=== PATIENT | female | born 1955 | race Caucasian/White ===

== ENCOUNTER → 2016-09-20 | Outpatient (CLI) | payer BC | LOC: MW.CHFP 09:20 | PROVIDERS: ATTEND Physician Assistant | DX: E03.9 Hypothyroidism, unspecified (principal); E78.5 Hyperlipidemia, unspecified | CPT/HCPCS: 36415; 80061; 84443 ==

== ENCOUNTER 2017-08-14 07:26 | Day surgery (SDC) | payer BC ==
[~2017-08-14 07:26] MED LIST: Lactated Ringers 1,000 ML IV SCH; Lidocaine 2% 5 ML SDV ONE; Propofol 200 MG/20 ML SDV ONE
--- NOTE | 2017-08-14 07:58 | PCM.PREANE ---
Preanesthetic Assessment - Anesthesia/Transfusion/Family Hx Anesthesia History: Prior Anesthesia Without Reaction Family History of Anesthesia Reaction: No Transfusion History: No Prior Transfusion(s) Intubation History: Unknown - Review of Systems General: No Symptoms Pulmonary: No Symptoms Cardiovascular: No Symptoms Gastrointestinal: Constipation, Hematochezia Neurological: No Symptoms Other: Reports: None - Physical Assessment O2 Sat by Pulse Oximetry: 97 Respiratory Rate: 16 Vital Signs: Last Vital Signs Temp 35.7 C 08/14/17 07:35 Pulse 70 08/14/17 07:35 Resp 16 08/14/17 07:35 BP 124/73 08/14/17 07:35 Pulse Ox 97 08/14/17 07:35 Height: 1.68 m Weight: 85.729 kg ASA Class: 2 Mental Status: Alert & Oriented x3 Airway Class: Mallampati = 2 Dentition: Reports: Dentures (upper), Partial (lower) Thyro-Mental Finger Breadths: 3 Mouth Opening Finger Breadths: 3 ROM/Head Extension: Limited/Partial Lungs: Clear to Auscultation, Normal Respiratory Effort Cardiovascular: Regular Rate, Regular Rhythm - Allergies Allergies/Adverse Reactions: Allergies Allergy/AdvReac Type Severity Reaction Status Date / Time levothyroxine sodium Allergy Numbness Verified 08/09/17 10:19 - Blood Blood Available: No - Anesthesia Plan Pre-Op Medication Ordered: None - Acknowledgements Anesthesia Type Planned: MAC Pt an Appropriate Candidate for the Planned Anesthesia: Yes Alternatives and Risks of Anesthesia Discussed w Pt/Guardian: Yes Pt/Guardian Understands and Agrees with Anesthesia Plan: Yes PreAnesthesia Questionnaire HEENT History: Reports: Sinusitis, Other (See Below) Other HEENT History: wears glasses, has top denture and bottom partial Cardiovascular History: Reports: High Cholesterol Gastrointestinal History: Reports: Colon Polyp, Other (See Below) Other Gastrointestinal History: occasional heartburn Genitourinary History: Reports: None Musculoskeletal History: Reports: Osteoarthritis Neurological History: Reports: None Endocrine/Metabolic History: Reports: Hypothyroidism, Obesity/BMI 30+ - Past Surgical History Head Surgeries/Procedures: Reports: None GI Surgical History: Reports: Colonoscopy (x2 '06 and ') Female Surgical History: Reports: Hysterectomy, Salpingo-Oophorectomy Neurological Surgical History: Reports: C-Spine ([facility] 3 years ago) Other Neurological Surgeries/Procedures: cervical fusion - SUBSTANCE USE Smoking Status *Q: Light Tobacco Smoker Tobacco Use Within Last Twelve Months: Cigarettes Recreational Drug Use History: No - HOME MEDS Home Medications: Home Meds Aspirin 325 mg PO DAILY 08/09/17 [History] Glycerin/Phenyleph/Pramox/Pet [Preparation H Crm] 1 applic RECTAL ASDIRECTED PRN 08/09/17 [History] Levothyroxine Sodium [Synthroid] 100 mcg PO DAILY 08/09/17 [History] Multivitamin [Multivitamins] 1 tab PO DAILY 08/09/17 [History] Red Yeast Rice 1 tab PO DAILY 08/09/17 [History] Sennosides [Laxative] 1 tab PO ASDIRECTED 08/09/17 [History] - CURRENT (IN HOUSE) MEDS Current Meds: Current Medications Lactated Ringer's (Ringers, Lactated) 1,000 mls @ 125 mls/hr IV ASDIRECTED [facility] Last Admin: 08/14/17 07:47 Dose: 125 mls/hr Discontinued Medications Lidocaine (Xylocaine-Mpf 2%) Confirm Administered Dose 5 ml .ROUTE .STK-MED ONE Stop: 08/14/17 07:22 Propofol (Diprivan 20 Ml) Confirm Administered Dose 400 mg .ROUTE .STK-MED ONE Stop: 08/14/17 07:23
--- NOTE | 2017-08-14 09:36 | PCM.OPNOTE ---
- General Post-Op/Procedure Note Date of Surgery/Procedure: 08/14/17 Operative Procedure(s): Colonoscopy Pre Op Diagnosis: Rectal bleeding. Change in bowel habits. Personal history of colon polyps. Post-Op Diagnosis: Sigmoid diverticulosis. Anesthesia Technique: MAC (ASA II) Primary Surgeon: Patrick Hadley Condition: Good Free Text/Narrative:: Dictation [id number] CPT CODE [id number]
[2017-08-14] MEDS ORDERED: Lactated Ringers 1,000 ML IV SCH (09:45)
--- NOTE | 2017-08-14 12:13 | OR ---
SURGEON: Patrick Hadley M.D. DATE OF PROCEDURE: 08/14/2017 OPERATION PERFORMED: Colonoscopy. ANESTHESIA: MAC. ASA CLASSIFICATION: Two. PREOPERATIVE DIAGNOSES: 1. Intermittent rectal bleeding. 2. Change in bowel habits. 3. Personal history of colon polyps. POSTOPERATIVE DIAGNOSIS: Sigmoid diverticulosis. DESCRIPTION OF PROCEDURE: The patient was taken to the endoscopy room, positioned on the endoscopy table in the left lateral decubitus position. Time-out was called for appropriate identification of patient and procedure. Monitored anesthesia care was provided. The colonoscope was inserted into the rectum and advanced with minimal difficulty to the cecum where the colonoscope was retroflexed to visualize the ascending colon from below. The colonoscope was then straightened and slowly withdrawn. The cecum, ascending colon, hepatic flexure, transverse colon, splenic flexure, and descending colon showed no tumors, polyps, diverticula, or angiodysplasia. Small diverticula were noted scattered throughout the sigmoid colon. No stricture, spasm, or bleeding was noted. No sigmoid polyps were encountered. The colonoscope was then withdrawn to the rectum and retroflexed to visualize the anal orifice from above. Again no tumors or polyps were seen and there were no acute hemorrhoidal changes. The colonoscope was then straightened, the rectum aspirated, and the colonoscope removed. The patient tolerated the procedure well and was taken to recovery room in stable condition. CESAR REEES /[id number]
== END 2017-08-14 10:15 | disposition home or self-care (01) ==
LOC: MW.SDS 07:26
PROVIDERS: ATTEND Surgery
DX: K57.30 Diverticulosis of large intestine without perforation or abscess without bleeding (principal); K62.5 Hemorrhage of anus and rectum; F17.210 Nicotine dependence, cigarettes, uncomplicated; E66.9 Obesity, unspecified; Z68.30 Body mass index [BMI] 30.0-30.9, adult; E78.00 Pure hypercholesterolemia, unspecified; Z86.010 Personal history of colon polyps; Z87.19 Personal history of other diseases of the digestive system; Z79.82 Long term (current) use of aspirin; Z80.0 Family history of malignant neoplasm of digestive organs
CPT/HCPCS: 45378; J7120; J2704

== ENCOUNTER 2020-03-27 09:29 | Day surgery (SDC) | payer BC ==
--- NOTE | 2020-03-27 10:20 | PCM.PREANE ---
Preanesthetic Assessment - Anesthesia/Transfusion/Family Hx Anesthesia History: Prior Anesthesia Without Reaction Family History of Anesthesia Reaction: No Transfusion History: No Prior Transfusion(s) Intubation History: Unknown - Review of Systems General: No Symptoms Pulmonary: No Symptoms Cardiovascular: No Symptoms Gastrointestinal: Constipation, Hematochezia, Other (diverticulosis , h/o colon polyps '06) Neurological: No Symptoms Other: Reports: None - Physical Assessment Height: 5 ft 6 in Weight: 87.09 kg ASA Class: 2 Mental Status: Alert & Oriented x3 Airway Class: Mallampati = 2 Dentition: Reports: Dentures (upper and lower - glued tight) Thyro-Mental Finger Breadths: 3 Mouth Opening Finger Breadths: 3 ROM/Head Extension: Limited/Partial Lungs: Clear to Auscultation, Normal Respiratory Effort Cardiovascular: Regular Rate, Regular Rhythm - Allergies Allergies/Adverse Reactions: Allergies Allergy/AdvReac Type Severity Reaction Status Date / Time levothyroxine sodium Allergy Numbness Verified 03/23/20 15:30 - Blood Blood Available: No - Anesthesia Plan Pre-Op Medication Ordered: None - Acknowledgements Anesthesia Type Planned: MAC Pt an Appropriate Candidate for the Planned Anesthesia: Yes Alternatives and Risks of Anesthesia Discussed w Pt/Guardian: Yes Pt/Guardian Understands and Agrees with Anesthesia Plan: Yes PreAnesthesia Questionnaire HEENT History: Reports: Other (See Below) Other HEENT History: wears glasses, has upper full denture and lower partial removable denture Cardiovascular History: Reports: High Cholesterol Gastrointestinal History: Reports: Colon Polyp, Diverticulosis, Hemorrhoids Other Gastrointestinal History: occasional heartburn Genitourinary History: Reports: None Musculoskeletal History: Reports: Back Pain, Chronic Neurological History: Reports: None Endocrine/Metabolic History: Reports: Hypothyroidism, Obesity/BMI 30+ (BMI 31.0) - Past Surgical History Head Surgeries/Procedures: Reports: None GI Surgical History: Reports: Colonoscopy (x3, last time '18 - normal) Female Surgical History: Reports: Breast Biopsy, Hysterectomy, Salpingo- Oophorectomy Neurological Surgical History: Reports: C-Spine, Spinal Fusion - SUBSTANCE USE Smoking Status *Q: Current Every Day Smoker (1 ppd) Tobacco Use Within Last Twelve Months: Cigarettes Recreational Drug Use History: No - HOME MEDS Home Medications: Home Meds Multivitamin [Multivitamins] 1 tab PO DAILY 08/09/17 [History] Levothyroxine Sodium [Synthroid] 100 mcg PO QAM 03/23/20 [History] - CURRENT (IN HOUSE) MEDS Current Meds: Current Medications Lactated Ringer's (Ringers, Lactated) 1,000 mls @ 125 mls/hr IV ASDIRECTED [facility]
[2020-03-27] MEDS ORDERED: fentaNYL 100 MCG/2 ML SDV ONE (11:00)
[2020-03-27] MEDS ORDERED: Midazolam 1 MG/ML 2 ML SDV ONE (11:00)
[2020-03-27] MEDS ORDERED: Propofol 200 MG/20 ML SDV ONE (11:00)
[2020-03-27] MEDS ORDERED: Lidocaine 2% 5 ML SDV ONE (11:02)
[2020-03-27] MEDS ORDERED: Lactated Ringers 1,000 ML IV SCH ×2 (11:30→12:15)
--- NOTE | 2020-03-27 12:10 | PCM.OPNOTE ---
- General Post-Op/Procedure Note Date of Surgery/Procedure: 03/27/20 Operative Procedure(s): Colonoscopy Pre Op Diagnosis: Rectal bleeding. Hx of colon polyps. Family history of colon cancer. Post-Op Diagnosis: Mild sigmoid diverticulosis. Internal hemorrhoids. Anesthesia Technique: MAC (ASA II) Primary Surgeon: Patrick Hadley Condition: Good Free Text/Narrative:: DICTATION [id number] CPT CODE [id number]
--- NOTE | 2020-03-27 12:21 | PCM.POSTAN ---
POST ANESTHESIA ASSESSMENT - MENTAL STATUS Mental Status: Alert, Oriented - VITAL SIGNS Vital Signs: Last Vital Signs Temp 36.3 C 03/27/20 10:00 Pulse 59 L 03/27/20 12:12 Resp 13 03/27/20 12:12 BP 101/64 03/27/20 12:12 Pulse Ox 97 03/27/20 12:12 - RESPIRATORY Respiratory Status: Respiratory Rate WNL, Airway Patent, O2 Saturation Stable - CARDIOVASCULAR CV Status: Pulse Rate WNL, Blood Pressure Stable - GASTROINTESTINAL GI Status: No Symptoms - PAIN Pain Score: 0 - POST OP HYDRATION Hydration Status: Adequate & Stable - OBSERVATIONS Free Text/Narrative:: No anesthesia problems
--- NOTE | 2020-03-27 12:34 | PCM48HPAN ---
Post Anesthesia Note - EVALUATION WITHIN 48HRS OF ANESTHETIC Vital Signs in Normal Range: Yes Patient Participated in Evaluation: Yes Respiratory Function Stable: Yes Airway Patent: Yes Cardiovascular Function Stable: Yes Hydration Status Stable: Yes Pain Control Satisfactory: Yes Nausea and Vomiting Control Satisfactory: Yes Mental Status Recovered: Yes Vital Signs: Last Vital Signs Temp 36.3 C 03/27/20 10:00 Pulse 59 L 03/27/20 12:12 Resp 13 03/27/20 12:12 BP 101/64 03/27/20 12:12 Pulse Ox 97 03/27/20 12:12 - COMMENTS/OBSERVATIONS Free Text/Narrative:: No anesthesia problems
--- NOTE | 2020-03-27 14:06 | OR ---
SURGEON: Patrick Hadley M.D. DATE OF PROCEDURE: 03/27/2020 OPERATION PERFORMED: Colonoscopy. PRIMARY SURGEON: Patrick Hadley MD ANESTHESIA: MAC. ASA CLASSIFICATION: II. PREOPERATIVE DIAGNOSES: 1. Rectal bleeding. 2. History of colon polyps. 3. Family history of colon cancer. POSTOPERATIVE DIAGNOSES: 1. Internal hemorrhoids. 2. Mild sigmoid diverticulosis. DESCRIPTION OF PROCEDURE: The patient was taken to the endoscopy room and positioned on the endoscopy table in the left lateral decubitus position. Time-out was called for appropriate identification of the patient and procedure. Monitored anesthesia care was provided. The colonoscope was inserted into the rectum and advanced with minimal difficulty to the cecum. The cecum was identified by internal landmarks and external pressure. The colonoscope was retroflexed to visualize the ascending colon from below, then straightened and slowly withdrawn. The cecum, ascending colon, hepatic flexure, transverse colon, splenic flexure, and descending colon showed no tumors, polyps, diverticula, or angiodysplastic changes anywhere. Sigmoid colon demonstrated a few small scattered diverticula. No stricture, spasm, or bleeding was noted. No polyps were encountered in the sigmoid colon. The colonoscope was then withdrawn to the rectum and retroflexed to visualize the anal orifice from above. Again, no tumors or polyps were seen and there were no acute hemorrhoidal changes. She does have some chronic hemorrhoids that are not actively bleeding. The colonoscope was then straightened, the rectum aspirated, and the colonoscope removed. The patient tolerated the procedure well and was taken to recovery room in stable condition. CESAR / HUGH /[id number]
[2020-03-28] MEDS ORDERED: Lactated Ringers 1,000 ML IV SCH (06:00)
== END 2020-03-27 13:32 | disposition home or self-care (01) ==
LOC: MW.SDS 09:29
PROVIDERS: ATTEND Surgery
DX: K57.30 Diverticulosis of large intestine without perforation or abscess without bleeding (principal); K64.8 Other hemorrhoids; F17.210 Nicotine dependence, cigarettes, uncomplicated; K62.5 Hemorrhage of anus and rectum; E78.00 Pure hypercholesterolemia, unspecified; E78.5 Hyperlipidemia, unspecified; E03.9 Hypothyroidism, unspecified; E66.9 Obesity, unspecified; Z68.31 Body mass index [BMI] 31.0-31.9, adult; Z88.1 Allergy status to other antibiotic agents; Z79.890 Hormone replacement therapy; Z79.899 Other long term (current) drug therapy; Z86.010 Personal history of colon polyps; Z80.0 Family history of malignant neoplasm of digestive organs; Z98.890 Other specified postprocedural states
CPT/HCPCS: 45378; J2001; J2704; J3010; J7120; 00811; J2250

== ENCOUNTER 2022-07-06 10:45 | Emergency (ER) | payer MEDICARE, BC ==
[2022-07-06] MEDS ORDERED: Sodium Chloride 0.9% 2.5 ML Syringe FLUSH PRN (10:49)
[2022-07-06] MEDS ORDERED: Sodium Chloride 0.9% 10 ML Syringe FLUSH PRN (10:49)
[2022-07-06 11:33] LABS: CARBON DIOXIDE,CO2 26.8 mmol/L (21.0-32.0); POTASSIUM,K 3.8 mmol/L (3.5-5.1)
[2022-07-06] MEDS ORDERED: Heparin Sodium/0.45% NaCl 500 ML IV SCH (12:00)
[2022-07-06] MEDS ORDERED: Heparin Sodium 5,000 Units/ML Vial IVPUSH ONE (12:16)
== END 2022-07-06 17:45 ==
LOC: MW.ED 10:45
DX: K57.92 Diverticulitis of intestine, part unspecified, without perforation or abscess without bleeding (principal); K55.069 Acute infarction of intestine, part and extent unspecified; E78.00 Pure hypercholesterolemia, unspecified; E66.9 Obesity, unspecified; Z79.899 Other long term (current) drug therapy; Z20.822 Contact with and (suspected) exposure to COVID-19; Z68.31 Body mass index [BMI] 31.0-31.9, adult
CPT/HCPCS: 36415; 80053; 83605; 85025; 85730; 93005; 96365; 96366; 99285; J1644; J3490; U0002

== ENCOUNTER 2023-11-12 15:11 | Emergency (ER) | payer MEDICARE, BC ==
[2023-11-12] MEDS: Lidocaine 1% 5 ML VIAL INJECT ONE (16:04)
== END 2023-11-12 16:16 | disposition home or self-care (01) ==
LOC: MW.ED 15:11
DX: S61.412A Laceration without foreign body of left hand, initial encounter (principal); Z88.8 Allergy status to other drugs, medicaments and biological substances; Z79.899 Other long term (current) drug therapy; E78.00 Pure hypercholesterolemia, unspecified; E03.9 Hypothyroidism, unspecified; Z90.710 Acquired absence of both cervix and uterus; W26.0XXA Contact with knife, initial encounter; Y93.89 Activity, other specified
CPT/HCPCS: 12002; 99282; 99283; J3490

== ENCOUNTER 2023-11-21 10:45 | Emergency (ER) | payer MEDICARE, BC | END 2023-11-21 11:28 | disposition left against medical advice (07) | LOC: MW.ED 10:45 | DX: S61.412D Laceration without foreign body of left hand, subsequent encounter (principal); X58.XXXD Exposure to other specified factors, subsequent encounter | CPT/HCPCS: 99281 ==